=== PATIENT | male | born 1985 | race Caucasian/White ===

== ENCOUNTER 2018-08-31 04:18 | Emergency (ER) | payer BC ==
[2018-08-31] MEDS: DIPHENHYDRAMINE 50 MG INJ IV (05:01)
[2018-08-31] MEDS: SOD CHLORIDE 0.9% 1,000 ML IV (05:01)
[2018-08-31] MEDS: METOCLOPRAMIDE 10 MG INJ IV (05:01)
[2018-08-31] MEDS: KETOROLAC 30 MG INJ IV (05:02)
== END 2018-08-31 06:35 | disposition home or self-care (01) ==
LOC: FTE 04:18
DX: G43.909 Migraine, unspecified, not intractable, without status migrainosus (principal)
CPT/HCPCS: 96361; 96374; 96375; 99284-25